=== PATIENT | female | born 1960 | race Caucasian/White ===

== ENCOUNTER 2016-05-08 12:18 | Emergency (ER) | payer OTHER ==
[~2016-05-08] VITALS: Ht 160 cm; Wt 158.0 kg
[2016-05-08 12:52] LABS: ABSOLUTE BASOPHIL COUNT 0.1 /CUMM (0.0-0.2); ABSOLUTE EOSINOPHIL COUNT 0 /CUMM (0.0-0.7); ABSOLUTE GRANULOCYTE CT 15.4 /CUMM (1.4-6.5); ABSOLUTE LYMPH COUNT 1.9 /CUMM (1.2-3.4); ABSOLUTE MONOCYTE COUNT 0.7 /CUMM (0.10-0.60); BASOPHIL % 0.7 % (0.0-2.0); EOSINOPHIL % 0.2 % (0-5); GRANULOCYTE % 84.5 % (42.2-75.2); HEMATOCRIT 47.9 % (37-47); MEAN CORPUSCULAR HGB 28.6 PG (27.0-31.0); MEAN CORPUSCULAR HGB CONC 31.4 G/DL (33.0-37.0); MEAN CORPUSCULAR VOLUME 91.3 FL (81.0-99.0); MEAN PLATELET VOLUME 7.4 FL (7.4-10.4); PLATELET COUNT 380 /CUMM (130-400); RED BLOOD CELL CT 5.25 /CUMM (4.20-5.40); WHITE BLOOD CELL COUNT 18.3 /CUMM (4.8-10.8)
--- NOTE | 2016-05-08 13:19 | ED CRITICAL CARE ---
History of Present Illness General Chief Complaint: Dyspnea (COPD, CHF, Other) Stated Complaint: BIBA UNRESPONSIVE, RESP DISTRESS Source: family, EMS Exam Limitations: clinical condition Vital Signs & Intake/Output Vital Signs & Intake/Output Vital Signs Date Time Temp Pulse Resp B/P Pulse O2 O2 Flow FiO2 Ox Delivery Rate 05/08 1603 100 05/08 1552 101.1 104 20 182/70 97 Ventilator 05/08 1525 104 140/69 05/08 1454 95 24 149/63 92 Ventilator 100% 05/08 1445 100 05/08 1445 121 76 05/08 1436 96.7 95 20 102/56 65 Ventilator 05/08 1409 77 100% 05/08 1339 96 20 170/61 98 Ventilator 100% 05/08 1306 102 24 126/55 95 Ventilator 100% 05/08 1305 100 05/08 1239 120 148/74 77 100% 05/08 1230 76 BIPAP 100% Allergies Coded Allergies: No Known Allergies (05/08/16) Triage Nurses Notes Reviewed? yes Onset: Abrupt Duration: unknown duration Timing: single episode today Injury Environment: home Severity: severe Associated Symptoms: OBTUNDED HPI: 56 year old female with lung ca on chemo, recent diagnosed bilateral PE on anticoagulation presents via EMS from home with severe respiratory distress. EMS unable to control airway and could not transport to [place] which was request per family. She is s/p chemo 3 days ago and had a cough at the time. Family was unable to reach her via phone this morning and got concerned. Her sister reports that she was having some URI symptoms which begain a few days ago. She was evaluated by the PA prior to chemo who thought she might have PNA but CXR at that time was negative. Patient presents obtunded, severe respiratory distress, cyanotic with response to painful stimuli. Oxygen saturation in field in 50's. Past History Travel History Traveled to [place] past 21 day No Medical History Any Pertinent Medical History? see below for history Respiratory: pulmonary embolism, sleep apnea, lung CA Cancer(s): lung cancer Other Medical Hx: morbid obesity Surgical History Surgical History: non-contributory Family History Hx Contributory? No Review of Systems Review of Systems Constitutional: Reports: see HPI (UNABLE TO OBTAIN FROM PT). Physical Exam Physical Exam General Appearance: severe distress, obese Head: atraumatic Eyes: Bilateral: PERRL (4 MM BILATERALLY). Ears, Nose, Throat, Mouth: LARGE PROTUBERANT TONGUE Neck: THIK/SHORT NECK Respiratory: B/L RALES/RHONCHI Cardiovascular: tachycardia Peripheral Pulses: 2+ radial (R), 2+ radial (L) Gastrointestinal: OBESE, SOFT Extremities: B/L EDEMA Neurologic/Psych: OBTUNDED Skin: cyanosis Core Measures ACS in differential dx? No CVA/TIA Diagnosis: No Severe Sepsis Present: No Septic Shock Present: No Progress Differential Diagnoses I considered the following diagnoses in my evaluation of the patient: [PNA, PTX, PE, HYPERCARBIC RESPIRATORY FAILURE, ICH, BRAIN METASTASIS] Plan of Care: Orders Procedure Date/time Status VENTILATOR PARAMETERS 05/08 1550 Complete EKG 05/08 1542 Active LACTIC ACID 05/08 1538 Active Restraint- Medical 05/08 1520 Active URINE DRUGS OF ABUSE 05/08 1506 Active RAPID VIRAL INFLUENZA A 05/08 1450 Active LOWER RESPIRATORY CULTURE 05/08 1450 Active Patient Data 05/08 1410 Active MRA-HEAD W/O-W MILLIE 05/08 1405 Active ARTERIAL BLOOD GAS (GEN) 05/08 1359 Complete VENTILATOR PARAMETERS 05/08 1305 Complete URINALYSIS 05/08 1239 Complete ARTERIAL BLOOD GAS (GEN) 05/08 1238 Complete BLOOD CULTURE 05/08 1238 Active TROPONIN LEVEL 05/08 1238 Complete PARTIAL THROMBOPLASTIN TIME 05/08 1238 Active PROTHROMBIN TIME 05/08 1238 Active LACTIC ACID 05/08 1238 Complete COMPREHENSIVE METABOLIC PANEL 05/08 1238 Complete CBC WITHOUT DIFFERENTIAL 05/08 1238 Complete BIPAP 05/08 1230 Complete AEROSOL (GEN) 05/08 1230 Complete EKG 05/08 1220 Active Current Medications Sig/Bety Start time Last Medication Dose Stop Time Status Admin Acetaminophen 1,000 MG ONCE ONE 05/08 1615 UNVr (Ofirmev) 05/08 1629 N/A 1 UNIT (No Carrier) Sodium Chloride 1,000 ML BOLUS ONE 05/08 1545 AC (Normal Saline 0.9%) 05/08 1644 Laboratory Tests 05/08/16 1350: pH 7.37, pCO2 54 H, pO2 70 L, HCO3 31 H, ABG O2 Sat (Measured) 92.0 L, Carboxyhemoglobin 2.4, O2 Concentration % 100, Respiration Rate 24, O2 Delivery Method VENT, Vent Mode AC, Expiratory Pressure 5, Tidal Volume 600, Phlebotomy Draw Site RIGHT RADIAL 05/08/16 1250: Urinalysis MOD H, Urine Color YEL, Urine Clarity HAZY H, Urine pH 6.0, Ur Specific [place] >= 1.030, Urine Protein 100 H, Urine Ketones NEG, Urine Nitrite NEG, Urine Bilirubin NEG, Urine Urobilinogen 0.2, Ur Leukocyte Esterase NEG, Ur Microscopic SEDIMENT EXAMINED, Urine RBC 1-3, Urine WBC 3-5 H, Ur Epithelial Cells FEW, Urine Bacteria FEW H, Hyaline Casts 5-10 H, Granular Casts 15-25 H, Urine Mucus FEW, Micro UA Comment CELLULAR CASTS H, Urine Hemoglobin SMALL H, Urine Glucose NEG 05/08/16 1246: Anion Gap 10, Estimated GFR > 60, BUN/Creatinine Ratio 32.2 H, Glucose 171 H, Lactic Acid 1.7, Calcium 9.6, Total Bilirubin 0.3, AST 31, ALT 41, Alkaline Phosphatase 78, Troponin I 0.02, Total Protein 6.8, Albumin 3.7, Globulin 3.1, Albumin/Globulin Ratio 1.2, CBC w Diff MAN DIFF ORDERED, RBC 5.25, MCV 91.3, MCH 28.6, RDW 17.0 H, MPV 7.4, Gran % 84.5 H, Lymphocytes % 10.7 L, Monocytes % 3.9, Eosinophils % 0.2, Basophils % 0.7, Absolute Granulocytes 15.4 H, Absolute Lymphocytes 1.9, Absolute Monocytes 0.7 H, Absolute Eosinophils 0, Absolute Basophils 0.1, Platelet Estimate ADEQUATE, Normocytic RBCs VERIFIED, Normochromic RBCs VERIFIED, PUBS MCHC 31.4 L 05/08/16 1235: pH 7.04 *L, pCO2 137 *H, pO2 44 *L, HCO3 36 H, ABG O2 Sat (Measured) 62.0 L, Carboxyhemoglobin 3.3, O2 Concentration % 100%, Respiration Rate 24, O2 Delivery Method BIPAP, Vent Mode ST, Expiratory Pressure 6, Inspiratory Pressure 26, Phlebotomy Draw Site RIGHT RADIAL Microbiology 05/08 1450 LOWER RESP: Respiratory Culture - ORD 05/08 1450 LOWER RESP: Gram Stain - ORD 05/08 1450 NASOPHARYN: Influenza Virus A & B Rapid Smear - ORD 05/08 1238 BLOOD: Blood Culture - ORD 05/08 1238 BLOOD: Blood Culture - ORD PLEASE SEE NURSING NOTES FOR SEQUENCE OF RESPIRATORY RESUSSCITATION PH 7.0. BICARB AMPS, BICARB DRIP ORDERED. IV ABX ORDERED. NO IMPROVEMENT ON BIPAP OR WITH IV NARCAN. DECISION MADE TO INTUBATE PATIENT. MULTIPLE ATTEPTS MADE. CORDS EDEMATOUS, UNABLE TO INTUBATE WITH GLIDESCOPE. PATIENT INTUBATED BY ANESTHESIA. PROPOFOL DRIP ORDERED. D/W DR DENT FOR ADMISSION TO ICU. CT HEAD CONSISTENT WITH EDEMA PER RADIOLOGY. UNABLE TO OBTAIN MRI NO VENT COMPATIBLE FOR MRI. WILL ATTEMPT TO TRANSFER TO [place]. NO AVAILABLE BED AT MICU IN [place]. 3PM D/W [place] ICU RESIDENT FOR POSSIBLE ICU TRANSFER. 4:[address] NIKKO NGUYEN AT [facility]. WILL WAIT FOR BED. (DIANE YIP,SUSY) Diagnostic Imaging: Viewed by Me: CT Scan. Discussed w/RAD: CT Scan. Initial ED EKG: ACCELERATED JUNCTIONAL Rhythm Strip: sinus tachycardia Comments: PATIENT: STEPHY PANDA PRESENT AGE: 56 PATIENT ACCOUNT NO: [id number] : 62 LOCATION: [facility] ORDERING PHYSICIAN: FRANTZ DELANEY SERVICE DATE: 05/08/16 EXAM TYPE: CAT - CT HEAD WO IV CONTRAST EXAMINATION: CT HEAD WITHOUT CONTRAST CLINICAL INFORMATION: Unresponsive. Respiratory distress. Recent PE diagnosis. COMPARISON: None TECHNIQUE: Contiguous axial imaging was performed from the skull base to vertex without intravenous administration of contrast. DLP: 600.71 mGy-cm FINDINGS: Evaluation is limited due to motion artifact. There is no evidence of acute intracranial hemorrhage or territorial infarction. No midline shift is seen. No extra-axial fluid collections are identified. Varner to white matter differentiation is preserved. However, there is a relative paucity of sulci seen, raising the suspicion of developing brain edema. The ventricles are normal in size. There is no abnormal attenuation within the brain parenchyma. The osseous structures and soft tissues are normal. The mastoid air cells and visualized portions of the paranasal sinuses are well aerated. IMPRESSION: 1. No intracranial hemorrhage or acute territorial infarction. 2. Relative paucity of sulci is seen, which in the clinical setting provided raises the suspicion of developing brain edema. Close clinical correlation is requested. A follow-up MRI scan is warranted to exclude developing cerebral edema. This result was discussed with Dr. Susy Infante 05/08/2016, 2:03 PM and it was ascertained that the content and urgency of this report was understood at the time of direct communication. DICTATED BY: ALLYSON EVERETT MD DATE/TIME DICTATED:05/08/161355 GRINDER SETUP OPERATOR:JOCELINE DATE/TIME TRANSCRIBED:05/08/161355 CONFIDENTIAL, DO NOT COPY WITHOUT APPROPRIATE AUTHORIZATION. <Electronically signed in Other Vendor System> SIGNED BY: ALLYSON EVERETT MD 1412 PATIENT: STEPHY PANDA PRESENT AGE: 56 PATIENT ACCOUNT NO: [id number] : 62 LOCATION: [facility] ORDERING PHYSICIAN: FRANTZ DELANEY SERVICE DATE: 05/08/16 EXAM TYPE: CAT - CT ABD & PELVIS ANGIOGRAM; CTA CHEST-PULMONARY EMBOLISM EXAMINATION: CT CHEST PE STUDY CT ANGIOGRAM ABDOMEN AND PELVIS CLINICAL INFORMATION: Unresponsive. Respiratory distress. Recent PE diagnosis. COMPARISON: None. TECHNIQUE: Prior to contrast administration, localization images were obtained. After the administration of 125 mL of intravenous Optiray 350, multidetector CT volume acquisition of the chest, abdomen and pelvis was performed. 3-D postprocessing was performed with multiplanar reconstructions and MIP images obtained at the acquisition workstation. DLP: 1088.87 mGy-cm. FINDINGS: CTA OF THE CHEST: Pulmonary arteries: The study is nondiagnostic. There is extensive beam hardening artifact extending throughout the chest and there is suboptimal opacification of the pulmonary arterial tree. Lungs: Low lung volumes are seen with dependent atelectasis present in both upper lobes and both lower lobes. There is also more extensive consolidation seen in the left lower lobe with air bronchograms, possibly related to pneumonia. Patchy areas of opacity is seen in the right lower lobe with associated air bronchograms, consistent with atelectasis and/or pneumonia. Masslike nodular opacity is seen in the right upper lobe, adjacent to the minor fissure (series 4, image 20). Aorta and heart: The aorta is normal in caliber with no evidence of aortic dissection or aneurysm. Curvilinear opacity in the ascending aorta (series 5, image 18) is most consistent with pulsation artifact. No periaortic collection. The heart is enlarged. There is no pericardial effusion. Prominent mediastinal fat is present. The main, right and left pulmonary arteries are enlarged, suspicious for pulmonary arterial hypertension. There is a left subclavian PICC line in place with tip extending to the deep SVC. Lymphatic structures: There is no definite lymphadenopathy. Bones: Moderate degenerative changes are present in the spine. CTA OF THE ABDOMEN AND PELVIS: Vascular structures: Evaluation limited by extensive beam hardening artifact. Abdominal aorta normal in caliber with mild atherosclerotic calcifications of the distal aorta and bifurcation seen. Celiac axis, SMA, both renal arteries and ELINA are patent. No variant anatomy is seen. No periaortic collection is noted. An IVC filter is in place with tip at the level of the left renal vein. Liver, gallbladder, biliary tree: Prominent artifact seen extending through the liver. No suspicious focal findings. No intra or extrahepatic ductal dilatation. Gallbladder unremarkable. Spleen: Unremarkable. Pancreas: Unremarkable. Kidneys and adrenal glands: Unremarkable. Bladder: Decompressed by a Luu catheter. Pelvic organs: Unremarkable. Bowel loops: Small and large bowel loops decompressed and unremarkable. Appendix not visualized. Abdominal wall: Small fat-containing umbilical hernia. There is a 1.1 cm superficial hyperdensity seen in the midline of the anterior abdominal wall, approximately 6.7 cm superior to the level of the umbilicus, possibly representing a sebaceous cyst or other subcutaneous nodule. Lymphatic structures: Unremarkable. Bones: Unremarkable. IMPRESSION: 1. The study is nondiagnostic for assessing the pulmonary arterial tree due to extensive artifact and suboptimal bolus timing. 2. Thoracic and abdominal aorta appears intact with no evidence of aortic dissection or aneurysm. No abnormal periaortic collections. 3. Volume loss and consolidation in left lower lobe, suspicious for pneumonia. 4. Patchy areas of opacities seen in the right lower lobe and in the upper lobes bilaterally, possibly related to atelectasis versus additional patchy areas of pneumonia. 5. Enlarged pulmonary arteries, consistent with pulmonary arterial hypertension. 6. IVC filter in place with tip just below the level of the left renal vein. 7. Small fat-containing umbilical hernia. Findings discussed with Dr. Susy Infante 05/08/2016, 2:35 PM. DICTATED BY: KARLOS YIP,ALLYSON Arambula DATE/TIME DICTATED:05/08/161400 GRINDER SETUP OPERATOR:JOCELINE DATE/TIME TRANSCRIBED:05/08/161400 CONFIDENTIAL, DO NOT COPY WITHOUT APPROPRIATE AUTHORIZATION. <Electronically signed in Other Vendor System> SIGNED BY: ALLYSON EVERETT MD 1445 Departure Departure Time of Disposition: 1700 Disposition: OTHER [facility] (ACUTE) Condition: Stable Clinical Impression Primary Impression: Respiratory arrest Secondary Impressions: Hypercapnic respiratory failure, Pneumonia Referrals: NALLELY SHELBY Departure Forms: Customer Survey General Discharge Information Critical Care Note Critical Care Note Critical Care Time: 75-104 min
--- NOTE | 2016-05-08 14:06 | History & Physical ---
General Information and HPI Allergies/Medications Allergies: Coded Allergies: No Known Allergies (05/08/16) Past History Travel History Traveled to [place] past 21 day No Medical History Cardiovascular: hypertension, hyperlipidemia Respiratory: COPD, obstructive sleep apnea, respiratory failure Endocrine: diabetes Blood Disorders: leucocytosis Cancer(s): lung cancer Past Family/Social History Psychosocial History ETOH Use: 6 Illicit Drug Use: UTD Core Measures/Miscellaneous Venous Thromboembolism VTE Risk Factors: Age > 40 No Mech VTE prophylaxis d/t: No contraindications No VTE Pharm Prophylaxis d/t: No contraindications VTE Diagnosis: No VTE Type: NONE VTE Confirmed by (Test): NONE Miscellaneous Documentation Attending Case Discussed With: Dr Sujata Baca Primary Care Physician: SHEIKH Doug PERSAUD Level of Patient Care: Critical Care (CRI) Intake & Output 05/08 1600 05/08 0800 05/08 0000 Intake Total Output Total Balance Patient 158 kg Weight Core Measures/Miscellaneous Acute Coronary Syndrome ACS Diagnosis: No Cerebrovascular Accident CVA/TIA Diagnosis: No Congestive Heart Failure CHF Diagnosis: No Venous Thromboembolism VTE Risk Factors: Age > 40 No Mech VTE prophylaxis d/t: No contraindications No VTE Pharm Prophylaxis d/t: No contraindications VTE Diagnosis: No VTE Type: NONE VTE Confirmed by (Test): NONE Miscellaneous Documentation Attending Case Discussed With: Dr Sujata Baca Primary Care Physician: SHEIKH Doug PERSAUD Level of Patient Care: Critical Care (CRI)
--- NOTE | 2016-05-08 14:12 | CT SCAN REPORT ---
EXAMINATION: CT HEAD WITHOUT CONTRAST CLINICAL INFORMATION: Unresponsive. Respiratory distress. Recent PE diagnosis. COMPARISON: None TECHNIQUE: Contiguous axial imaging was performed from the skull base to vertex without intravenous administration of contrast. DLP: 600.71 mGy-cm FINDINGS: Evaluation is limited due to motion artifact. There is no evidence of acute intracranial hemorrhage or territorial infarction. No midline shift is seen. No extra-axial fluid collections are identified. Varner to white matter differentiation is preserved. However, there is a relative paucity of sulci seen, raising the suspicion of developing brain edema. The ventricles are normal in size. There is no abnormal attenuation within the brain parenchyma. The osseous structures and soft tissues are normal. The mastoid air cells and visualized portions of the paranasal sinuses are well aerated. IMPRESSION: 1. No intracranial hemorrhage or acute territorial infarction. 2. Relative paucity of sulci is seen, which in the clinical setting provided raises the suspicion of developing brain edema. Close clinical correlation is requested. A follow-up MRI scan is warranted to exclude developing cerebral edema. This result was discussed with Dr. Susy Infante 05/08/2016, 2:03 PM and it was ascertained that the content and urgency of this report was understood at the time of direct communication.
--- NOTE | 2016-05-08 14:45 | CT SCAN REPORT ---
EXAMINATION: CT CHEST PE STUDY CT ANGIOGRAM ABDOMEN AND PELVIS CLINICAL INFORMATION: Unresponsive. Respiratory distress. Recent PE diagnosis. COMPARISON: None. TECHNIQUE: Prior to contrast administration, localization images were obtained. After the administration of 125 mL of intravenous Optiray 350, multidetector CT volume acquisition of the chest, abdomen and pelvis was performed. 3-D postprocessing was performed with multiplanar reconstructions and MIP images obtained at the acquisition workstation. DLP: 1088.87 mGy-cm. FINDINGS: CTA OF THE CHEST: Pulmonary arteries: The study is nondiagnostic. There is extensive beam hardening artifact extending throughout the chest and there is suboptimal opacification of the pulmonary arterial tree. Lungs: Low lung volumes are seen with dependent atelectasis present in both upper lobes and both lower lobes. There is also more extensive consolidation seen in the left lower lobe with air bronchograms, possibly related to pneumonia. Patchy areas of opacity is seen in the right lower lobe with associated air bronchograms, consistent with atelectasis and/or pneumonia. Masslike nodular opacity is seen in the right upper lobe, adjacent to the minor fissure (series 4, image 20). Aorta and heart: The aorta is normal in caliber with no evidence of aortic dissection or aneurysm. Curvilinear opacity in the ascending aorta (series 5, image 18) is most consistent with pulsation artifact. No periaortic collection. The heart is enlarged. There is no pericardial effusion. Prominent mediastinal fat is present. The main, right and left pulmonary arteries are enlarged, suspicious for pulmonary arterial hypertension. There is a left subclavian PICC line in place with tip extending to the deep SVC. Lymphatic structures: There is no definite lymphadenopathy. Bones: Moderate degenerative changes are present in the spine. CTA OF THE ABDOMEN AND PELVIS: Vascular structures: Evaluation limited by extensive beam hardening artifact. Abdominal aorta normal in caliber with mild atherosclerotic calcifications of the distal aorta and bifurcation seen. Celiac axis, SMA, both renal arteries and ELINA are patent. No variant anatomy is seen. No periaortic collection is noted. An IVC filter is in place with tip at the level of the left renal vein. Liver, gallbladder, biliary tree: Prominent artifact seen extending through the liver. No suspicious focal findings. No intra or extrahepatic ductal dilatation. Gallbladder unremarkable. Spleen: Unremarkable. Pancreas: Unremarkable. Kidneys and adrenal glands: Unremarkable. Bladder: Decompressed by a Luu catheter. Pelvic organs: Unremarkable. Bowel loops: Small and large bowel loops decompressed and unremarkable. Appendix not visualized. Abdominal wall: Small fat-containing umbilical hernia. There is a 1.1 cm superficial hyperdensity seen in the midline of the anterior abdominal wall, approximately 6.7 cm superior to the level of the umbilicus, possibly representing a sebaceous cyst or other subcutaneous nodule. Lymphatic structures: Unremarkable. Bones: Unremarkable. IMPRESSION: 1. The study is nondiagnostic for assessing the pulmonary arterial tree due to extensive artifact and suboptimal bolus timing. 2. Thoracic and abdominal aorta appears intact with no evidence of aortic dissection or aneurysm. No abnormal periaortic collections. 3. Volume loss and consolidation in left lower lobe, suspicious for pneumonia. 4. Patchy areas of opacities seen in the right lower lobe and in the upper lobes bilaterally, possibly related to atelectasis versus additional patchy areas of pneumonia. 5. Enlarged pulmonary arteries, consistent with pulmonary arterial hypertension. 6. IVC filter in place with tip just below the level of the left renal vein. 7. Small fat-containing umbilical hernia. Findings discussed with Dr. Susy Infante 05/08/2016, 2:35 PM.
--- NOTE | 2016-05-08 15:14 | Cons- Infect Disease ---
General Information and HPI Consulting Request Date of Consult: 05/08/16 Requested By: Dr. Jain Reason for Consult: Bilateral pneumonia Source of Information: family, EMS Exam Limitations: not alert/orientated, clinical condition History of Present Illness: This is a 56-year-old woman with a history of diabetes, hypertension, COPD, obstructive sleep apnea and pulmonary emboli, status post IVC filter and maintained on Eliquis, diagnosed with adenocarcinoma of the right lung at [facility] 4 months prior to admission, hospitalized there 2 months prior to admission for resection, which had to be aborted, recently begun on chemotherapy via a PICC in her left arm, with her last treatment 2 days prior to admission, admitted today after she was found by her sister at home to be in marked respiratory distress. She was able to tell EMS when they arrived she had been short of breath since the morning. On arrival to the emergency room she was alert to verbal and painful stimuli but nonverbal and cyanotic with an O2 sat of 77%. She was intubated with improvement in her O2 sats on 100% oxygen and she has been sedated. Allergies/Medications Allergies: Coded Allergies: No Known Allergies (05/08/16) Past History Travel History Traveled to [place] past 21 day No Medical History Cardiovascular: hypertension, hyperlipidemia Respiratory: COPD, obstructive sleep apnea Endocrine: diabetes Blood Disorders: PE Cancer(s): lung cancer Surgical History Surgical History: status post IVC filter Psychosocial History ETOH Use: 6 Illicit Drug Use: UTD Review of Systems Comments Unobtainable Exam & Diagnostic Data Last 24 Hrs of Vital Signs/I&O Vital Signs Date Time Temp Pulse Resp B/P Pulse O2 O2 Flow FiO2 Ox Delivery Rate 05/08 1445 121 76 05/08 1436 96.7 95 20 102/56 65 Ventilator 05/08 1409 77 100% 05/08 1339 96 20 170/61 98 Ventilator 100% 05/08 1306 102 24 126/55 95 Ventilator 100% 05/08 1239 120 148/74 77 100% Intake & Output 05/08 1600 05/08 0800 05/08 0000 Intake Total 1000 Output Total Balance 1000 Intake, IV 1000 Patient 326 lb Weight Physical Exam Other Physical Findings: She is unresponsive, sedated, on the ventilator. She is afebrile, with her most recent blood pressure 102/56. Skin cool extremities with no rash. HEENT exam is negative. Neck is supple with no adenopathy. Lungs are clear. Heart regular rhythm with no murmur. Abdomen is obese, soft, with positive bowel sounds. Back no CVA tenderness. Extremities cyanotic feet, with decreased pulses; PICC in the left upper extremity with no inflammation at the site; no lower extremity edema. Neuro is unable to be evaluated. Luu catheter is in place. Last 24 Hours of Lab Results: Laboratory Tests 05/08 05/08 1350 1250 Blood Gas pH (7.35 - 7.45 PH) 7.37 pCO2 (35 - 45 TORR) 54 H pO2 (80 - 100 TORR) 70 L HCO3 (21 - 28 MEQ/L) 31 H ABG O2 Sat (Measured) (>96.0 %) 92.0 L Carboxyhemoglobin (1.5 - 5.0 %) 2.4 O2 Concentration % 100 Respiration Rate (BPM) 24 O2 Delivery Method VENT Vent Mode AC Expiratory Pressure (CMH2O/P) 5 Tidal Volume (CC) 600 Miscellaneous Phlebotomy Draw Site RIGHT RADIAL Urines Urinalysis MOD H Urine Color (YEL,AMB,STR) YEL Urine Clarity (CLEAR) HAZY H Urine pH (5.0 - 8.0) 6.0 Ur Specific [place]le (1.001 - 1.035) >= 1.030 Urine Protein (NEG,<30 MG/DL) 100 H Urine Ketones (NEG) NEG Urine Nitrite (NEG) NEG Urine Bilirubin (NEG) NEG Urine Urobilinogen (0.1 - 1.0 EU/dl) 0.2 Ur Leukocyte Esterase (NEG) NEG Ur Microscopic SEDIMENT EXAMINED Urine RBC (0 - 5 /HPF) 1-3 Urine WBC (0 - 2 /HPF) 3-5 H Ur Epithelial Cells (NONE,FEW) FEW Urine Bacteria (NEG/NONE) FEW H Hyaline Casts (0/LPF) 5-10 H Granular Casts (NONE /LPF) 15-25 H Urine Mucus (FEW,NONE) FEW Micro UA Comment CELLULAR CASTS H Urine Hemoglobin (NEG) SMALL H Urine Glucose (N MG/DL) NEG 05/08 05/08 1246 1235 Blood Gas pH (7.35 - 7.45 PH) 7.04 *L pCO2 (35 - 45 TORR) 137 *H pO2 (80 - 100 TORR) 44 *L HCO3 (21 - 28 MEQ/L) 36 H ABG O2 Sat (Measured) (>96.0 %) 62.0 L Carboxyhemoglobin (1.5 - 5.0 %) 3.3 O2 Concentration % 100% Respiration Rate (BPM) 24 O2 Delivery Method BIPAP Vent Mode ST Expiratory Pressure (CM H2O P) 6 Inspiratory Pressure (CM H2O P) 26 Chemistry Sodium (137 - 145 mmol/L) 139 Potassium (3.5 - 5.1 mmol/L) 5.0 Chloride (98 - 107 mmol/L) 98 Carbon Dioxide (22 - 30 mmol/L) 31 H Anion Gap (5 - 16) 10 BUN (7 - 17 mg/dL) 29 H Creatinine (0.5 - 1.0 mg/dL) 0.9 Estimated GFR (>60 ml/min) > 60 BUN/Creatinine Ratio (7 - 25 %) 32.2 H Glucose (65 - 99 mg/dL) 171 H Lactic Acid (0.7 - 2.1 mmol/L) 1.7 Calcium (8.4 - 10.2 mg/dL) 9.6 Total Bilirubin (0.2 - 1.3 mg/dL) 0.3 AST (14 - 36 U/L) 31 ALT (9 - 52 U/L) 41 Alkaline Phosphatase (<127 U/L) 78 Troponin I (< 0.11 ng/ml) 0.02 Total Protein (6.3 - 8.2 g/dL) 6.8 Albumin (3.5 - 5.0 g/dL) 3.7 Globulin (1.9 - 4.2 gm/dL) 3.1 Albumin/Globulin Ratio (1.1 - 2.2 %) 1.2 Hematology CBC w Diff MAN DIFF ORDERED WBC (4.8 - 10.8 /CUMM) 18.3 H RBC (4.20 - 5.40 /CUMM) 5.25 Hgb (12.0 - 16.0 G/DL) 15.0 Hct (37 - 47 %) 47.9 H MCV (81.0 - 99.0 FL) 91.3 MCH (27.0 - 31.0 PG) 28.6 RDW (11.5 - 14.5 %) 17.0 H Plt Count (130 - 400 /CUMM) 380 MPV (7.4 - 10.4 FL) 7.4 Gran % (42.2 - 75.2 %) 84.5 H Lymphocytes % (20.5 - 51.1 %) 10.7 L Monocytes % (1.7 - 9.3 %) 3.9 Eosinophils % (0 - 5 %) 0.2 Basophils % (0.0 - 2.0 %) 0.7 Absolute Granulocytes (1.4 - 6.5 /CUMM) 15.4 H Absolute Lymphocytes (1.2 - 3.4 /CUMM) 1.9 Absolute Monocytes (0.10 - 0.60 /CUMM) 0.7 H Absolute Eosinophils (0.0 - 0.7 /CUMM) 0 Absolute Basophils (0.0 - 0.2 /CUMM) 0.1 Platelet Estimate (ADEQUATE) ADEQUATE Normocytic RBCs VERIFIED Normochromic RBCs VERIFIED PUBS MCHC (33.0 - 37.0 G/DL) 31.4 L Miscellaneous Phlebotomy Draw Site RIGHT RADIAL Last 24 Hours of Raphael Results: No cultures obtained as of yet Diagnostic Data Recent Imaging Findings: CT of the head reveals no intracranial hemorrhage or infarct; relative paucity of sulci seen, raising the suspicion of developing brain edema CTA of the chest, abdomen and pelvis reveals volume loss and consolidation in the left lower lobe, patchy areas of opacities in the right lower lobe and the upper lobes bilaterally; masslike nodular opacity in the right upper lobe Assessment/Plan Assessment/Plan Impression: This is a 56-year-old woman diagnosed with adenocarcinoma of the right upper lobe 4 months prior to admission, not resected, recently begun on chemotherapy, last treatment 2 days prior to admission, admitted today after she was found at home in respiratory distress, with marked respiratory acidosis and decreased responsiveness upon arrival to the emergency room, requiring intubation, found to be afebrile with a leukocytosis and with a CT scan of the chest suggesting bilateral pneumonia. The CT of the head findings raise concern for brain edema, but MRI is unable to be done here. Her leukocytosis is most likely secondary to pneumonia, though it is not clear if she received Neulasta at the time of her chemotherapy, which could also explain this. She can be covered broadly pending cultures as she was recently hospitalized at [facility], but her antibiotics should be able to be narrowed once her cultures are back. Suggestion: 1. Blood cultures 2, urine culture and sputum culture 2. Urine for strep pneumo antigen and Legionella antigen 3. Further evaluation and management with regard to her possible brain edema per the ICU team 4. Vancomycin 2 g IV every 12 hours, Ceftazidime 2 g IV every 8 hours and Azithromycin 500 mg IV every 24 hours pending above Consult Acknowledgment - Thank you for your consult request.
[2016-05-08 17:01] VITALS: BP 123/68
[2016-05-08 17:38] LABS: PT 11.8 SEC (9.4-12.5)
[2016-05-08 17:41] LABS: PTT < 20 SEC (25-37)
== END 2016-05-08 17:04 | disposition short-term general hospital (02) ==
LOC: ERH 12:18
PROVIDERS: Physician Assistant Medical
DX: R09.2 Respiratory arrest (principal); J18.9 Pneumonia, unspecified organism; J96.92 Respiratory failure, unspecified with hypercapnia; Z79.01 Long term (current) use of anticoagulants; I26.99 Other pulmonary embolism without acute cor pulmonale
CPT/HCPCS: 1263; 1288; 1344; 1387; 74174; 80307; 81001; 87040; 87070; 87086; 87804; 87804-59; 93005; 93010; 94799; 96361; 96374; 96375; 96376; 99291; J0131; J0713; J2310; J3370; J7060